=== PATIENT | female | born 1955 | race African-American/Black ===

== ENCOUNTER 2017-05-14 06:56 | Inpatient (IN) | payer OTHER ==
[~2017-05-14] VITALS: Ht 165.1 cm; Wt 49.5 kg
[2017-05-14] MEDS ORDERED: HYDR-906 PO (07:50)
[2017-05-14] MEDS ORDERED: LOVA20TA PO (07:50)
[2017-05-14] MEDS ORDERED: OMEP20CA16 PO (07:50)
[2017-05-14] MEDS ORDERED: IBUP800T25 PO (07:51)
[2017-05-14] MEDS ORDERED: CALC600T24 PO (07:52)
[2017-05-14] MEDS ORDERED: LATA2.5D2 BOTH EYES (07:52)
[2017-05-14 08:27] VITALS: Ht 165.1 cm; Wt 49.5 kg
[2017-05-14 08:30] VITALS: BP 132/80; PULSE 63; RESP 19
[2017-05-14] MEDS ORDERED: CEFAZOLIN 1 GM/50 ML (PMX) 50 ML IVPB ONE (09:00)
[2017-05-14 09:11] LABS: BASOPHILS % 0.8 % (0.0-2.0); EOSINOPHILS # 0.1 10^3/ul (0.0-0.5); EOSINOPHILS % 1.3 % (0.0-7.0); HEMATOCRIT 36.9 % (37.0-47.0); LYMPHOCYTES # 1.4 10^3/ul (0.8-2.9); LYMPHOCYTES % 35.2 % (15.0-51.0); MEAN CORPUSCULAR HEMOGLOBIN 29.2 pg (29.0-33.0); MEAN CORPUSCULAR HGB CONC 32.5 g/dl (32.0-37.0); MEAN CORPUSCULAR VOLUME 89.8 fl (82.0-101.0); MEAN PLATELET VOLUME 12.3 fl (7.4-10.4); MONOCYTE # 0.3 10^3/ul (0.3-0.9); MONOCYTES % 8.4 % (0.0-11.0); NEUTROPHIL # 2.1 10^3/ul (1.6-7.5); PLATELET COUNT 210 10^3/UL (140-415); RED BLOOD COUNT 4.11 10^6/ul (4.20-5.40); RED CELL DISTRIBUTION WIDTH 12.9 % (11.5-14.5)
[2017-05-14 09:14] LABS: PROTIME 13.2 Sec (12.2-14.2)
[2017-05-14 09:20] LABS: CREATININE 0.61 mg/dl (0.44-1.00); POTASSIUM 3.7 mmol/L (3.5-5.1)
[2017-05-14 09:27] LABS: WHITE BLOOD COUNT 3.9 10^3/ul (4.8-10.8)
[2017-05-14 09:44] LABS: PARTIAL THROMBOPLASTIN TIME 36.6 Sec (25.0-35.0)
[2017-05-14 09:59] LABS: ADD UMIC NO; UR ASCORBIC ACID NEGATIVE (NEGATIVE); UR BILIRUBIN (Dip) NEGATIVE (NEGATIVE); UR BLOOD (Dip) NEGATIVE (NEGATIVE); UR CLARITY CLEAR (CLEAR); UR COLOR YELLOW (YELLOW); UR GLUCOSE (Dip) NEGATIVE (NEGATIVE); UR KETONES (Dip) NEGATIVE (NEGATIVE); UR LEUKOCYTE ESTERASE (Dip) NEGATIVE Leu/ul (NEGATIVE); UR NITRITE (Dip) NEGATIVE (NEGATIVE); UR SPECIFIC GRAVITY (Dip) 1.013 (1.003-1.030); UR TOTAL PROTEIN (Dip) NEGATIVE (NEGATIVE); UR UROBILINOGEN (Dip) NEGATIVE (NEGATIVE)
--- NOTE | 2017-05-14 10:52 | HPN ---
Date/Time of Note Date/Time of Note DATE: 05/14/17 TIME: 10:52 Interval H&P Admission Note Pt. seen H&P reviewed: No system changes ROSENDO HAUSER MD May 14, 2017 10:52
== END 2017-05-14 12:01 | disposition home or self-care (01) | DRG 554 ==
LOC: REC 06:56
PROVIDERS: ADMIT Specialist; ATTEND Specialist
DX: M15.0 Primary generalized (osteo)arthritis (principal); M17.10 Unilateral primary osteoarthritis, unspecified knee; Z53.9 Procedure and treatment not carried out, unspecified reason
CPT/HCPCS: 80048; 81003; 85025; 85610; 85730

== ENCOUNTER 2017-05-31 11:16 | Inpatient (IN) | payer OTHER ==
[2017-05-31] VITALS (19 sets, daily range): BP systolic 91–136; BP diastolic 54–80; PULSE 52–80; RESP 15–22; Ht 165.1 cm; Wt 48.0 kg
[~2017-05-31] VITALS: Ht 165.1 cm; Wt 48.0 kg
[~2017-05-31 11:16] MED LIST: CALC600T24 PO; HYDR-906 PO; IBUP800T25 PO; LATA2.5D2 BOTH EYES; LOVA20TA PO; OMEP20CA16 PO
[2017-05-31] MEDS ORDERED: CEFAZOLIN 1 GM/50 ML (PMX) 50 ML IVPB ONE (12:00)
[2017-05-31] MEDS ORDERED: POLYMYXIN/BACITRACIN 1L IRRIG ONE (12:11)
[2017-05-31] MEDS ORDERED: BACITRACIN/POLYMYXIN 28.35 GM OINT TOP ONE (12:11)
[2017-05-31] MEDS ORDERED: CEFAZOLIN 1 GM INJ ONE (12:31)
[2017-05-31] MEDS ORDERED: morphine SULFATE/PF (10 MG/10 ML) INJ ONE (12:31)
[2017-05-31] MEDS ORDERED: PROPOFOL 100 ML ONE (12:31)
[2017-05-31] MEDS ORDERED: ROPIVACAINE 0.5 % 30 ML VIAL ONE (12:32)
[2017-05-31] MEDS ORDERED: MIDAZOLAM 1 MG/ML 2 ML INJ ONE ×2 (12:32)
--- NOTE | 2017-05-31 12:47 | HPN ---
Date/Time of Note Date/Time of Note DATE: 05/31/17 TIME: 12:47 Interval H&P Admission Note Pt. seen H&P reviewed: No system changes ROSENDO HAUSER MD May 31, 2017 12:47
--- NOTE | 2017-05-31 12:55 | OPR ---
Date/Time of Note Date/Time of Note DATE: 05/31/17 TIME: 12:51 Operative Report Preoperative Diagnosis left knee arthritis Postoperative Diagnosis same Surgeon see signature line Benefits Counselor nurse Anesthesia Type: general Estimated Blood Loss: 200 - 250 ml's Transfusion none Specimen bone Grafts/Implants total knee Complications none Procedure Description left total knee replacement ROSENDO HAUSER MD May 31, 2017 12:55
[2017-05-31] MEDS ORDERED: TRANEXAMIC ACID 1,000 MG in SOD CHLORIDE 0.9% 100 ML IV ONE ×6 (13:00)
[2017-05-31] MEDS ORDERED: morphine 4 MG/ML VIAL IV PRN (13:30)
[2017-05-31] MEDS ORDERED: HYDROmorphONE 0.5 MG/0.5 ML SYG IV PRN ×2 (13:30)
[2017-05-31] MEDS ORDERED: ONDANSETRON 4 MG INJ IV PRN (13:30)
[2017-05-31] MEDS ORDERED: ACETAMINOPHEN 500 MG TAB PO PRN (13:30)
[2017-05-31] MEDS ORDERED: morphine 2 MG INJ IV PRN (13:30)
[2017-05-31] MEDS ORDERED: KETOROLAC 15 MG INJ IV PRN (13:30)
[2017-05-31] MEDS ORDERED: DIPHENHYDRAMINE 50 MG INJ IV PRN ×2 (13:30)
[2017-05-31] MEDS ORDERED: ALBUMIN HUMAN 5% 250 ML IV PRN (13:30)
[2017-05-31] MEDS ORDERED: EPHEDrine SULFATE 50 MG/5 ML SYG IV PRN (13:30)
[2017-05-31] MEDS ORDERED: NALOXONE (0.4 MG/ML) INJ IV PRN (13:30)
[2017-05-31] MEDS ORDERED: NALBUPHINE HCL (10 MG/1 ML) INJ IV PRN (13:30)
[2017-05-31] MEDS ORDERED: MEPERIDINE 25 MG INJ IV PRN (13:30)
[2017-05-31] MEDS ORDERED: KETOROLAC 30 MG INJ ONE (15:08)
[2017-05-31] MEDS ORDERED: ONDANSETRON 4 MG INJ ONE (15:08)
[2017-05-31] MEDS ORDERED: METOCLOPRAMIDE 10 MG INJ ONE (15:08)
[2017-05-31] MEDS ORDERED: DEXAMETHASONE 4 MG/ML 1 ML INJ ONE (15:08)
[2017-05-31] MEDS ORDERED: ACETAMINOPHEN 1000MG/100ML IV 100 ML ONE (15:09)
[2017-05-31 16:18] LABS: HEMATOCRIT 34.5 % (37.0-47.0); HEMOGLOBIN 11.4 g/dl (12.0-16.0)
[2017-05-31] MEDS ORDERED: NACL 0.9% 3 ML SYG IV SCH (17:00)
[2017-05-31] MEDS ORDERED: MAGNESIUM HYDROXIDE 30ML CUP PO PRN (17:00)
[2017-05-31] MEDS ORDERED: ACETAMINOPHEN 650 MG SUPP PR PRN (17:00)
[2017-05-31] MEDS ORDERED: IBUPROFEN 600 MG TAB PO PRN (17:00)
[2017-05-31] MEDS ORDERED: BISACODYL (EC) 5 MG TAB PO PRN (17:00)
[2017-05-31] MEDS ORDERED: ACETAMINOPHEN 325 MG TAB PO PRN (17:00)
[2017-05-31 17:02] LABS: CALCIUM 8.9 mg/dl (8.4-10.2); CREATININE 0.66 mg/dl (0.44-1.00); POTASSIUM 3.6 mmol/L (3.5-5.1)
--- NOTE | 2017-05-31 17:18 | QN ---
Documentation Comment [id number] CATHRYN DAWSON MD May 31, 2017 17:17
[2017-05-31] MEDS: SOD CHLORIDE 0.9% 1,000 ML IV SCH (18:20)
--- NOTE | 2017-05-31 19:42 | HP ---
DATE OF ADMISSION: 05/31/2017 HISTORY OF PRESENT ILLNESS: The patient is a 61-year-old female with history of osteoarthritis. Underwent a left total knee replacement. The patient is being seen post-procedure. She is awake, alert, denies any pain. Blood pressure 109/66 and patient is being admitted for further management. PAST MEDICAL HISTORY: Osteoarthritis, DJD. No diabetes, hypertension. ALLERGY HISTORY: NEGATIVE. FAMILY HISTORY: Negative. SOCIAL HISTORY: Negative. MEDICATIONS AT HOME: Listed as: 1. Calcium carbonate. 2. Ibuprofen. 3._ eye drops. 4. Lovastatin. REVIEW OF SYSTEMS: HEENT: Unremarkable. RESPIRATORY: Unremarkable. CARDIOVASCULAR: Unremarkable. ABDOMEN: Unremarkable. EXTREMITIES: Denies any pain at this point. CENTRAL NERVOUS SYSTEM: Unremarkable. PHYSICAL EXAMINATION: GENERAL: The patient is awake, alert. VITAL SIGNS: Pulse 53, blood pressure 109/66. HEAD: Atraumatic, normocephalic. Pupils equal, reactive to light. NECK: Supple. No JVD. LUNGS: Clear. CARDIOVASCULAR: S1, S2 normal. ABDOMEN: Soft, nontender. Bowel sounds positive. EXTREMITIES: No cyanosis, clubbing, or edema. The patient has left knee dressing noted. CENTRAL NERVOUS SYSTEM: The patient is awake, alert, moving both lower extremities toes. IMPRESSION: 1. Status post left total knee replacement. 2. Osteoarthritis. 3. Degenerative joint disease. 4. Anemia. PLAN: Continue home medications when they are available. Continue IV fluid, pain medications. Follow recommendation from Dr. Bonilla. Dictated By: CATHRYN DAWSON MD BS/KAREL Conf#: [id number] DID#: [id number] [facility]
[2017-05-31] MEDS: LATANOPROST 0.005% 2.5 ML OPH BOTH EYES SCH (21:00)
[2017-05-31] MEDS: CEFAZOLIN 1 GM/50 ML (PMX) 50 ML IVPB SCH (21:59)
[2017-05-31] MEDS: ONDANSETRON 4 MG INJ IV PRN (21:59)
[2017-05-31] MEDS ORDERED: CEFAZOLIN 1 GM/50 ML (PMX) 50 ML IVPB SCH (22:00)
[2017-05-31] MEDS: ZOLPIDEM 5 MG TAB PO PRN (23:14)
[2017-06-01 00:16] VITALS: BP 106/66; RESP 18
[2017-06-01] MEDS: morphine 2 MG INJ IV PRN ×2 (03:58→14:25)
[2017-06-01] MEDS: ONDANSETRON 4 MG INJ IV PRN (03:58)
[2017-06-01] MEDS: CEFAZOLIN 1 GM/50 ML (PMX) 50 ML IVPB SCH (05:19)
[2017-06-01] MEDS: HYDROCODONE/APAP (5/325) TAB PO PRN ×3 (05:19→17:22)
[2017-06-01 05:55] VITALS: BP 109/68; PULSE 78; RESP 18
[2017-06-01] MEDS ORDERED: PANTOPRAZOLE 40 MG INJ IV SCH (06:00)
[2017-06-01 06:23] LABS: ABNORMAL IP MESSAGE 1; BASOPHILS % 0.1 % (0.0-2.0); HEMATOCRIT 34.6 % (37.0-47.0); HEMOGLOBIN 11.3 g/dl (12.0-16.0); LYMPHOCYTES # 0.8 10^3/ul (0.8-2.9); LYMPHOCYTES % 7.2 % (15.0-51.0); MEAN CORPUSCULAR HEMOGLOBIN 28.9 pg (29.0-33.0); MEAN CORPUSCULAR HGB CONC 32.7 g/dl (32.0-37.0); MEAN CORPUSCULAR VOLUME 88.5 fl (82.0-101.0); MEAN PLATELET VOLUME 13.3 fl (7.4-10.4); MONOCYTE # 0.7 10^3/ul (0.3-0.9); NEUTROPHIL # 10.1 10^3/ul (1.6-7.5); NEUTROPHILS % 86.4 % (39.0-77.0); RED BLOOD COUNT 3.91 10^6/ul (4.20-5.40); RED CELL DISTRIBUTION WIDTH 12.9 % (11.5-14.5); WHITE BLOOD COUNT 11.7 10^3/ul (4.8-10.8)
[2017-06-01 06:48] LABS: POSITIVE DIFF @See below
[2017-06-01 07:55] LABS: ANISOCYTOSIS 1+ (0-0); GIANT THROMBO% (M) 1 % (0-0); MONOCYTES % (M) 12 % (0-11); PLATELET ESTIMATE NORMAL; POIKILOCYTOSIS 2+ (0-0); POLYCHROMASIA 3+ (0-0)
[2017-06-01 08:17] VITALS: BP 101/68; RESP 18
[2017-06-01] MEDS: SOD CHLORIDE 0.9% 1,000 ML IV SCH (09:20)
[2017-06-01 10:10] LABS: CALCIUM 9.2 mg/dl (8.4-10.2); CREATININE 0.6 mg/dl (0.44-1.00); POTASSIUM 3.5 mmol/L (3.5-5.1)
[2017-06-01 13:18] LABS: PLATELET COUNT 159 10^3/UL (140-415)
--- NOTE | 2017-06-01 13:23 | PN ---
Date/Time of Note Date/Time of Note DATE: 06/01/17 TIME: 13:23 Assessment/Plan VTE Prophylaxis VTE Prophylaxis Intervention: SCD's Lines/Catheters IV Catheter Type (from Nrs): Peripheral IV Urinary Cath still in place: No Reason Cath still needed: urinary retention Assessment/Plan Chief Complaint/Hosp Course 1. Status post left total knee replacement. 2. Osteoarthritis. 3. Degenerative joint disease. 4. Anemia. Problems: Assessment/Plan 1. continue a/b 2. continue medical treatment 3. Insomnia prn 4. dickerson been removed Subjective 24 Hr Interval Summary Free Text/Dictation insomnia Respiratory: no complaints Cardiovascular: no complaints Musculoskeletal: back pain, swelling (left knee) Exam/Review of Systems Vital Signs Vitals Vital Signs Date Time Temp Pulse Resp B/P Pulse Ox O2 Delivery O2 Flow Rate FiO2 06/01/17 08:17 97.8 71 18 101/68 92 06/01/17 05:55 Room Air Intake and Output 05/31/17 05/31/17 06/01/17 14:59 22:59 06:59 Intake Total 1250 ml 1300 ml Output Total 602 ml 1105 ml Balance 648 ml 195 ml Exam Constitutional: alert, oriented Gastrointestinal: soft Musculoskeletal: swelling (left knee postop) Results Result Diagram: 06/01/17 0438 06/01/17 0438 Results 24 hrs Laboratory Tests Test 05/31/17 16:13 06/01/17 04:38 Hemoglobin 11.4 L 11.3 L Hematocrit 34.5 L 34.6 L Sodium Level 144 140 Potassium Level 3.6 3.5 Chloride Level 108 102 Carbon Dioxide Level 27 26 Anion Gap 13 16 Blood Urea Nitrogen 10 10 Creatinine 0.66 0.60 Glucose Level 92 107 Calcium Level 8.9 9.2 White Blood Count 11.7 #H Red Blood Count 3.91 L Mean Corpuscular Volume 88.5 Mean Corpuscular Hemoglobin 28.9 L Mean Corpuscular Hemoglobin Concent 32.7 Red Cell Distribution Width 12.9 Platelet Count 159 # Mean Platelet Volume 13.3 H Neutrophils % 86.4 H Segmented Neutrophils % (Manual) 71 Band Neutrophils % (Manual) 8 H Lymphocytes % 7.2 L Lymphocytes % (Manual) 10 L Monocytes % 6.0 Monocytes % (Manual) 12 H Eosinophils % 0.0 Basophils % 0.1 Nucleated Red Blood Cells % 0.0 Neutrophils # 10.1 H Neutrophils # (Manual) 8.4 H Band Neutrophils # 0.9 H Absolute Lymphocytes (Manual) 1.1 Lymphocytes # 0.8 Monocytes # 0.7 Absolute Monocytes (Manual) 1.4 H Eosinophils # 0.0 Basophils # 0.0 Nucleated Red Blood Cells # 0.0 Platelet Estimate NORMAL Giant Platelets 1 H Platelet Morphology Comment @See below Polychromasia 3+ Poikilocytosis 2+ Anisocytosis 1+ Medications Medications Current Medications Sodium Chloride (NS) 1,000 ml @ 60 mls/hr [id number] IV Last administered on 18:20; Admin Dose 60 MLS/HR; Start 05/31/17 at 16:40 Ondansetron HCl (Zofran Inj) 4 mg Q6H PRN IV NAUSEA AND/OR VOMITING Last administered on 06/01/17 03:58; Admin Dose 4 MG; Start 05/31/17 at 17:00 Acetaminophen (Tylenol Tab) 650 mg Q6H PRN PO PAIN LEVEL 1-3 OR FEVER; Start 05/31/17 at 17:00 Acetaminophen (Tylenol Supp) 650 mg Q6H PRN [place] PAIN LEVEL 1-3 OR FEVER; Start 05/31/17 at 17:00 Ibuprofen (Motrin) 600 mg Q6H PRN PO PAIN LEVEL 1-3; Start 05/31/17 at 17:00 Acetaminophen/ Hydrocodone Bitart ([place] (5/325)) 1 tab Q6H PRN PO MODERATE PAIN LEVEL 4-6 Last administered on 06/01/17 11:05; Admin Dose 1 TAB; Start 05/31/17 at 17:00 Docusate Sodium (Colace) 100 mg Q12H PRN PO CONSTIPATION; Start 05/31/17 at 17 :00 Magnesium Hydroxide (Milk Of Mag) 30 ml DAILY PRN PO CONSTIPATION; Start 05/31 at 17:00 Bisacodyl (Dulcolax) 5 mg DAILY PRN PO CONSTIPATION; Start 05/31/17 at 17:00 Pantoprazole (Protonix Iv) 40 mg DAILY@06 IV Last administered on 06/01/17 05 :19; Admin Dose 40 MG; Start 06/01/17 at 06:00 Latanoprost (Xalatan) 1 drop QHS BOTH EYES ; Start 05/31/17 at 21:00 Zolpidem Tartrate (Ambien) 5 mg HS PRN PO INSOMNIA Last administered on 23:14; Admin Dose 5 MG; Start 05/31/17 at 23:00 Morphine Sulfate (morphine) 2 mg Q4H PRN IV PAIN LEVEL 7-10 Last administered on 06/01/17 03:58; Admin Dose 2 MG; Start 05/31/17 at 23:00 DWIGHT CHUNG Jun 01, 2017 13:23
--- NOTE | 2017-06-01 13:35 | OPR ---
DATE OF OPERATION: SURGEON: Rosendo Bonilla MD ANESTHESIA: General. PREOPERATIVE DIAGNOSIS: Left knee osteoarthritis. POSTOPERATIVE DIAGNOSIS: Left knee osteoarthritis. PROCEDURE PERFORMED: 1. Left total knee replacement arthroplasty using [employer] Nephew posterior stabilized components cemented with a size 5 femur, size 3 tibia, and 23 mm patellar button, 9 mm liner. 2. Removal of hardware from left knee from prior anterior cruciate ligament reconstruction surgery consisting of 2 kate on the tibial side and an Endobutton from the femoral side. ESTIMATED BLOOD LOSS: 200 mL. TOURNIQUET TIME: 80 minutes. COMPLICATIONS: None. PROCEDURE: The patient taken to the operating room and general anesthetic given with a femoral bloc k. Tourniquet applied on the left side. Shepard catheter inserted sterilely. The left leg prepped a nd draped in the usual sterile manner, exsanguinated with an Esmarch bandage tourniquet inflated to 300 mmHg. The patient had prior surgery on the left anterior cruciate ligament reconstruction . She has developed severe and progressive arthritis with deformity, including flexion, varus deformity. Pain has persisted despite rest, medications, therapy, weight loss, steroid and gel inj ections. The patient taken to the operating room. A midline incision made with medial arthrotomy. Severe ar thritis noted in all compartments. The patella prepared for a 23 mm button and femur cut with the i ntramedullary guide to size 5 posterior stabilized component. Tibia cut for a size 3 component and gap measured and full extension and flexion achieved with 9 mm spacer. Wound irrigated with pulsati le lavage. Definitive components brought in and inspected. Cement was mixed and inserted satisfact orily on the dry bony surface. The knee was maintained in full extension while the cement set up. Excess cement was removed meticulously. Tourniquet deflated. Hemostasis obtained using cautery. A medium Hemovac drain placed into the joint. The knee joint was copiously irrigated. Hemostasis as certained. Esmarch tourniquet was deflated. Full extension was achieved with stable flexion, exten mariia and adequate patellar tracking. Arthrotomy closed with #2 FiberWire sutures and #1 Vicryl sutu res. Skin closed with kate. Compression bandage applied. Anesthetic reversed. Patient taken t o recovery in stable condition. Dictated By: ROSENDO ANGUIANO/KAREL Conf#: [id number] DID#: [id number]
[2017-06-01 14:47] VITALS: BP 100/63; RESP 18
[2017-06-01] MEDS: ZOLPIDEM 5 MG TAB PO PRN (17:22)
[2017-06-01 20:00] VITALS: BP 111/67; RESP 18
[2017-06-01] MEDS: LATANOPROST 0.005% 2.5 ML OPH BOTH EYES SCH (20:11)
[2017-06-02] MEDS: morphine 2 MG INJ IV PRN ×4 (00:06→15:24)
[2017-06-02] MEDS: HYDROCODONE/APAP (5/325) TAB PO PRN ×4 (00:38→18:00)
[2017-06-02] MEDS: SOD CHLORIDE 0.9% 1,000 ML IV SCH ×2 (02:00→12:03)
[2017-06-02 02:27] VITALS: BP 138/72; RESP 18
[2017-06-02 05:10] LABS: BASOPHILS % 0.2 % (0.0-2.0); EOSINOPHILS % 0.5 % (0.0-7.0); HEMATOCRIT 33.1 % (37.0-47.0); HEMOGLOBIN 10.5 g/dl (12.0-16.0); LYMPHOCYTES # 1.4 10^3/ul (0.8-2.9); LYMPHOCYTES % 16.5 % (15.0-51.0); MEAN CORPUSCULAR HEMOGLOBIN 28.6 pg (29.0-33.0); MEAN CORPUSCULAR HGB CONC 31.7 g/dl (32.0-37.0); MEAN CORPUSCULAR VOLUME 90.2 fl (82.0-101.0); MEAN PLATELET VOLUME 11.9 fl (7.4-10.4); MONOCYTE # 0.8 10^3/ul (0.3-0.9); MONOCYTES % 9.2 % (0.0-11.0); NEUTROPHIL # 6.1 10^3/ul (1.6-7.5); NEUTROPHILS % 73.4 % (39.0-77.0); PLATELET COUNT 215 10^3/UL (140-415); RED BLOOD COUNT 3.67 10^6/ul (4.20-5.40); RED CELL DISTRIBUTION WIDTH 13.2 % (11.5-14.5); WHITE BLOOD COUNT 8.4 10^3/ul (4.8-10.8)
[2017-06-02 05:45] LABS: CALCIUM 9.3 mg/dl (8.4-10.2); CREATININE 0.6 mg/dl (0.44-1.00)
[2017-06-02] MEDS: ONDANSETRON 4 MG INJ IV PRN ×2 (07:00→12:02)
[2017-06-02 07:25] VITALS: BP 130/72; RESP 20
[2017-06-02] MEDS ORDERED: morphine 4 MG/ML VIAL IV STA (07:32)
[2017-06-02] MEDS: FAMOTIDINE 20 MG INJ IV SCH ×2 (08:20→20:35)
--- NOTE | 2017-06-02 11:10 | PN ---
DWIGHT LE 06/02/17 1110: Date/Time of Note Date/Time of Note DATE: 06/02/17 TIME: 11:08 Assessment/Plan VTE Prophylaxis VTE Prophylaxis Intervention: ambulation, SCD's Lines/Catheters IV Catheter Type (from Nrsg): [place] Urinary Cath still in place: No Assessment/Plan Chief Complaint/Hosp Course 1. Status post left total knee replacement. 2. Osteoarthritis. 3. Degenerative joint disease. 4. Anemia. Problems: Assessment/Plan 1. Pain control 2. Control insomnia Subjective 24 Hr Interval Summary Free Text/Dictation insomnia Musculoskeletal: bone/joint pain Exam/Review of Systems Vital Signs Vitals Vital Signs Date Time Temp Pulse Resp B/P Pulse Ox O2 Delivery O2 Flow Rate FiO2 06/02/17 07:25 97.6 86 20 130/72 96 06/01/17 05:55 Room Air Intake and Output 06/01/17 06/01/17 06/02/17 14:59 22:59 06:59 Intake Total 920 ml 840 ml Output Total 2215 ml 40 ml Balance -1295 ml 800 ml Exam Constitutional: alert, oriented Gastrointestinal: soft Musculoskeletal: swelling (left knee) Results Result Diagram: 06/02/17 0434 06/02/17 0434 Results 24 hrs Laboratory Tests Test 06/02/17 04:34 White Blood Count 8.4 # Red Blood Count 3.67 L Hemoglobin 10.5 L Hematocrit 33.1 L Mean Corpuscular Volume 90.2 Mean Corpuscular Hemoglobin 28.6 L Mean Corpuscular Hemoglobin Concent 31.7 L Red Cell Distribution Width 13.2 Platelet Count 215 # Mean Platelet Volume 11.9 H Neutrophils % 73.4 Lymphocytes % 16.5 Monocytes % 9.2 Eosinophils % 0.5 Basophils % 0.2 Nucleated Red Blood Cells % 0.0 Neutrophils # 6.1 Lymphocytes # 1.4 Monocytes # 0.8 Eosinophils # 0.0 Basophils # 0.0 Nucleated Red Blood Cells # 0.0 Sodium Level 141 Potassium Level 4.0 Chloride Level 103 Carbon Dioxide Level 30 Anion Gap 12 Blood Urea Nitrogen 9 Creatinine 0.60 Glucose Level 90 Calcium Level 9.3 Medications Medications Current Medications Sodium Chloride (NS) 1,000 ml @ 60 mls/hr [id number] IV Last administered on t 18:20; Admin Dose 60 MLS/HR; Start 05/31/17 at 16:40 Ondansetron HCl (Zofran Inj) 4 mg Q6H PRN IV NAUSEA AND/OR VOMITING Last administered on 06/02/17 07:00; Admin Dose 4 MG; Start 05/31/17 at 17:00 Acetaminophen (Tylenol Tab) 650 mg Q6H PRN PO PAIN LEVEL 1-3 OR FEVER; Start 05/31/17 at 17:00 Acetaminophen (Tylenol Supp) 650 mg Q6H PRN [place] PAIN LEVEL 1-3 OR FEVER; Start 05/31/17 at 17:00 Ibuprofen (Motrin) 600 mg Q6H PRN PO PAIN LEVEL 1-3; Start 05/31/17 at 17:00 Acetaminophen/ Hydrocodone Bitart ([place] (5/325)) 1 tab Q6H PRN PO MODERATE PAIN LEVEL 4-6 Last administered on 06/02/17 06:17; Admin Dose 1 TAB; Start 05/31/17 at 17:00 Docusate Sodium (Colace) 100 mg Q12H PRN PO CONSTIPATION; Start 05/31/17 at 17 :00 Magnesium Hydroxide (Milk Of Mag) 30 ml DAILY PRN PO CONSTIPATION; Start 05/31 at 17:00 Bisacodyl (Dulcolax) 5 mg DAILY PRN PO CONSTIPATION; Start 05/31/17 at 17:00 Latanoprost (Xalatan) 1 drop QHS BOTH EYES Last administered on 06/01/17 20: 11; Admin Dose 1 DROP; Start 05/31/17 at 21:00 Zolpidem Tartrate (Ambien) 5 mg HS PRN PO INSOMNIA Last administered on 17:22; Admin Dose 5 MG; Start 05/31/17 at 23:00 Morphine Sulfate (morphine) 2 mg Q4H PRN IV PAIN LEVEL 7-10 Last administered on 06/02/17 04:37; Admin Dose 2 MG; Start 05/31/17 at 23:00 Famotidine (Pepcid Iv) 20 mg Q12 IV Last administered on 06/02/17 08:20; Admin Dose 20 MG; Start 06/02/17 at 09:00 MILENA AGUIALR MD 06/02/17 1548: Assessment/Plan Assessment/Plan Assessment/Plan pain control lovenox snif dc fluids Exam/Review of Systems Results Result Diagram: 06/02/17 0434 06/02/17 0434 DWIGHT CHUNG Jun 02, 2017 11:10 MILENA AGUILAR MD Jun 02, 2017 15:48
[2017-06-02 11:20] VITALS: BP 131/74; PULSE 84; RESP 16
[2017-06-02 15:07] VITALS: BP 121/72; RESP 20
[2017-06-02] MEDS: DOCUSATE SODIUM 100 MG CAP PO PRN (16:07)
[2017-06-02] MEDS: ENOXAPARIN 30 MG/0.3 ML SYG SC SCH (16:10)
[2017-06-02] MEDS ORDERED: morphine 4 MG/ML VIAL IV PRN (19:00)
[2017-06-02 20:29] VITALS: BP 144/82; RESP 16
[2017-06-02] MEDS: ZOLPIDEM 5 MG TAB PO PRN (20:35)
[2017-06-02] MEDS: LATANOPROST 0.005% 2.5 ML OPH BOTH EYES SCH (20:35)
[2017-06-02] MEDS: HYDROmorphONE 0.5 MG/0.5 ML SYG IV PRN (21:29)
[2017-06-03] MEDS: HYDROCODONE/APAP (5/325) TAB PO PRN ×4 (00:18→22:05)
[2017-06-03] MEDS: HYDROmorphONE 0.5 MG/0.5 ML SYG IV PRN ×5 (01:14→13:15)
[2017-06-03 02:23] VITALS: BP 114/67; RESP 16
[2017-06-03 06:13] LABS: BASOPHILS % 0.2 % (0.0-2.0); HEMATOCRIT 31.6 % (37.0-47.0); HEMOGLOBIN 10.4 g/dl (12.0-16.0); LYMPHOCYTES # 1.1 10^3/ul (0.8-2.9); LYMPHOCYTES % 9.4 % (15.0-51.0); MEAN CORPUSCULAR HEMOGLOBIN 28.9 pg (29.0-33.0); MEAN CORPUSCULAR HGB CONC 32.9 g/dl (32.0-37.0); MEAN CORPUSCULAR VOLUME 87.8 fl (82.0-101.0); MEAN PLATELET VOLUME 12.5 fl (7.4-10.4); MONOCYTE # 1.1 10^3/ul (0.3-0.9); MONOCYTES % 10.2 % (0.0-11.0); NEUTROPHILS % 79.8 % (39.0-77.0); PLATELET COUNT 220 10^3/UL (140-415); RED CELL DISTRIBUTION WIDTH 12.7 % (11.5-14.5); WHITE BLOOD COUNT 11.2 10^3/ul (4.8-10.8)
[2017-06-03 06:33] LABS: CREATININE 0.61 mg/dl (0.44-1.00); POTASSIUM 4.2 mmol/L (3.5-5.1)
[2017-06-03 07:50] VITALS: BP 125/78; RESP 18
[2017-06-03] MEDS: FAMOTIDINE 20 MG INJ IV SCH (08:52)
[2017-06-03] MEDS ORDERED: ENOXAPARIN 30 MG/0.3 ML SYG SC SCH (09:00)
[2017-06-03] MEDS: ENOXAPARIN 30 MG/0.3 ML SYG SC SCH (10:02)
--- NOTE | 2017-06-03 10:10 | RADRPT ---
Vent Rate: 70 bpm RR Interval: 0 msec TN Interval: 218 msec QRS Duration: 82 msec QT Interval: 394 msec QTC Interval: 425 msec P-R-T [place]: 66 - 77 - 69 degrees Sinus rhythm with 1st degree AV block Otherwise normal ECG No previous tracing available for comparison Electronically Signed By: Patrick Sarabia [id number]
--- NOTE | 2017-06-03 12:42 | PN ---
Date/Time of Note Date/Time of Note DATE: 06/03/17 TIME: 12:36 Assessment/Plan VTE Prophylaxis VTE Prophylaxis Intervention: LMWH Lines/Catheters IV Catheter Type (from Nrsg): Peripheral IV Urinary Cath still in place: No Assessment/Plan Chief Complaint/Hosp Course 61 y/o with 1. Status post left total knee replacement POD # 3 2. Osteoarthritis. 3. Degenerative joint disease. 4. Anemia. Plan: - PT - Pain control with [place] and Dilaudid - Stool softner - ARU vs SNIF - cw Lovenox Problems: Subjective 24 Hr Interval Summary Free Text/Dictation Pt says pain is better controlled today Walking with PT Exam/Review of Systems Vital Signs Vitals Vital Signs Date Time Temp Pulse Resp B/P Pulse Ox O2 Delivery O2 Flow Rate FiO2 06/03/17 07:50 98.2 71 18 125/78 99 06/02/17 11:20 Room Air Intake and Output 06/02/17 06/02/17 06/03/17 15:00 23:00 07:00 Intake Total 240 ml 200 ml 240 ml Output Total 20 ml 400 ml Balance 220 ml 200 ml -160 ml Exam Constitutional: alert, oriented, very pleasant woman Gastrointestinal: soft Musculoskeletal: swelling (left knee) s/p replacement, able to wiggle toes Results Result Diagram: 06/03/17 0455 06/03/17 0455 Results 24 hrs Laboratory Tests Test 06/03/17 04:55 White Blood Count 11.2 #H Red Blood Count 3.60 L Hemoglobin 10.4 L Hematocrit 31.6 L Mean Corpuscular Volume 87.8 Mean Corpuscular Hemoglobin 28.9 L Mean Corpuscular Hemoglobin Concent 32.9 Red Cell Distribution Width 12.7 Platelet Count 220 Mean Platelet Volume 12.5 H Neutrophils % 79.8 H Lymphocytes % 9.4 L Monocytes % 10.2 Eosinophils % 0.0 Basophils % 0.2 Nucleated Red Blood Cells % 0.0 Neutrophils # 9.0 H Lymphocytes # 1.1 Monocytes # 1.1 H Eosinophils # 0.0 Basophils # 0.0 Nucleated Red Blood Cells # 0.0 Sodium Level 137 Potassium Level 4.2 Chloride Level 100 Carbon Dioxide Level 28 Anion Gap 13 Blood Urea Nitrogen 9 Creatinine 0.61 Glucose Level 96 Calcium Level 9.0 Medications Medications Current Medications Ondansetron HCl (Zofran Inj) 4 mg Q6H PRN IV NAUSEA AND/OR VOMITING Last administered on 06/02/17 12:02; Admin Dose 4 MG; Start 05/31/17 at 17:00 Acetaminophen (Tylenol Tab) 650 mg Q6H PRN PO PAIN LEVEL 1-3 OR FEVER; Start 05/31/17 at 17:00 Acetaminophen (Tylenol Supp) 650 mg Q6H PRN [place] PAIN LEVEL 1-3 OR FEVER; Start 05/31/17 at 17:00 Ibuprofen (Motrin) 600 mg Q6H PRN PO PAIN LEVEL 1-3; Start 05/31/17 at 17:00 Acetaminophen/ Hydrocodone Bitart ([place] (5/325)) 1 tab Q6H PRN PO MODERATE PAIN LEVEL 4-6 Last administered on 06/03/17 11:31; Admin Dose 1 TAB; Start 05/31/17 at 17:00 Docusate Sodium (Colace) 100 mg Q12H PRN PO CONSTIPATION Last administered on 06/02/17 16:07; Admin Dose 100 MG; Start 05/31/17 at 17:00 Magnesium Hydroxide (Milk Of Mag) 30 ml DAILY PRN PO CONSTIPATION; Start 05/31 at 17:00 Bisacodyl (Dulcolax) 5 mg DAILY PRN PO CONSTIPATION; Start 05/31/17 at 17:00 Latanoprost (Xalatan) 1 drop QHS BOTH EYES Last administered on 06/02/17 20: 35; Admin Dose 1 DROP; Start 05/31/17 at 21:00 Zolpidem Tartrate (Ambien) 5 mg HS PRN PO INSOMNIA Last administered on 20:35; Admin Dose 5 MG; Start 05/31/17 at 23:00 Famotidine (Pepcid Iv) 20 mg Q12 IV Last administered on 06/03/17 08:52; Admin Dose 20 MG; Start 06/02/17 at 09:00 Enoxaparin Sodium (Lovenox) 30 mg DAILY SC Last administered on 06/03/17 10: 02; Admin Dose 30 MG; Start 06/02/17 at 16:00 Hydromorphone HCl (Dilaudid) 0.5 mg Q3H PRN IV PAIN Last administered on 10:16; Admin Dose 0.5 MG; Start 06/02/17 at 21:30 MILENA AGUILAR MD Jun 03, 2017 12:42
[2017-06-03] MEDS: HYDROmorphONE 2 MG TAB PO PRN ×2 (13:44→17:24)
[2017-06-03 15:00] VITALS: BP 121/69; RESP 19
[2017-06-03] MEDS: ZOLPIDEM 5 MG TAB PO PRN (17:24)
[2017-06-03 19:20] VITALS: BP 115/84; RESP 20
[2017-06-03] MEDS: FAMOTIDINE 20 MG TAB PO SCH (21:02)
[2017-06-03] MEDS: LATANOPROST 0.005% 2.5 ML OPH BOTH EYES SCH (21:02)
[2017-06-04 01:18] VITALS: BP 141/87; RESP 20
[2017-06-04] MEDS: HYDROCODONE/APAP (5/325) TAB PO PRN ×2 (04:32→13:26)
[2017-06-04 05:16] LABS: BASOPHILS % 0.3 % (0.0-2.0); EOSINOPHILS % 0.2 % (0.0-7.0); HEMATOCRIT 30.3 % (37.0-47.0); HEMOGLOBIN 10.1 g/dl (12.0-16.0); LYMPHOCYTES # 1.2 10^3/ul (0.8-2.9); LYMPHOCYTES % 11.8 % (15.0-51.0); MEAN CORPUSCULAR HEMOGLOBIN 28.9 pg (29.0-33.0); MEAN CORPUSCULAR HGB CONC 33.3 g/dl (32.0-37.0); MEAN CORPUSCULAR VOLUME 86.6 fl (82.0-101.0); MEAN PLATELET VOLUME 11.9 fl (7.4-10.4); MONOCYTE # 1.1 10^3/ul (0.3-0.9); MONOCYTES % 11.1 % (0.0-11.0); NEUTROPHIL # 7.6 10^3/ul (1.6-7.5); NEUTROPHILS % 76.3 % (39.0-77.0); PLATELET COUNT 234 10^3/UL (140-415); RED CELL DISTRIBUTION WIDTH 12.6 % (11.5-14.5); WHITE BLOOD COUNT 9.9 10^3/ul (4.8-10.8)
[2017-06-04] MEDS: DOCUSATE SODIUM 100 MG CAP PO PRN (05:21)
[2017-06-04 05:37] LABS: CALCIUM 9.3 mg/dl (8.4-10.2); CREATININE 0.61 mg/dl (0.44-1.00); POTASSIUM 3.6 mmol/L (3.5-5.1)
[2017-06-04 08:56] VITALS: BP 116/69; RESP 20
[2017-06-04] MEDS: HYDROmorphONE 2 MG TAB PO PRN ×3 (10:30→19:04)
[2017-06-04] MEDS: FAMOTIDINE 20 MG TAB PO SCH (10:30)
[2017-06-04] MEDS: ENOXAPARIN 30 MG/0.3 ML SYG SC SCH (10:36)
--- NOTE | 2017-06-04 14:51 | PN ---
Date/Time of Note Date/Time of Note DATE: 06/04/17 TIME: 14:51 Assessment/Plan VTE Prophylaxis VTE Prophylaxis Intervention: other Lines/Catheters IV Catheter Type (from Nrsg): Peripheral IV Urinary Cath still in place: No Assessment/Plan Chief Complaint/Hosp Course 61 y/o with 1. Status post left total knee replacement POD # 3 2. Osteoarthritis. 3. Degenerative joint disease. 4. Anemia. Plan: - PT - Pain control with [place] and Dilaudid switched to po - Stool softner with Miralax - ARU vs SNIF - per Ortho, dc lovenox switch to ASA - Possible dc to SNIF Problems: Subjective 24 Hr Interval Summary Free Text/Dictation Still has lot of pain Working with PT Pt lives by herself at home, no help at home Exam/Review of Systems Vital Signs Vitals Vital Signs Date Time Temp Pulse Resp B/P Pulse Ox O2 Delivery O2 Flow Rate FiO2 06/04/17 08:56 98.8 99 20 116/69 99 06/02/17 11:20 Room Air Intake and Output 06/03/17 06/03/17 06/04/17 15:00 23:00 07:00 Intake Total 700 ml 600 ml Output Total 300 ml 1000 ml Balance 400 ml -400 ml Exam onstitutional: alert, oriented, very pleasant woman Gastrointestinal: soft Musculoskeletal: swelling (left knee) s/p replacement +bleeding, able to wiggle toes Results Result Diagram: 06/04/17 0440 06/04/17 0440 Results 24 hrs Laboratory Tests Test 06/04/17 04:40 White Blood Count 9.9 Red Blood Count 3.50 L Hemoglobin 10.1 L Hematocrit 30.3 L Mean Corpuscular Volume 86.6 Mean Corpuscular Hemoglobin 28.9 L Mean Corpuscular Hemoglobin Concent 33.3 Red Cell Distribution Width 12.6 Platelet Count 234 Mean Platelet Volume 11.9 H Neutrophils % 76.3 Lymphocytes % 11.8 L Monocytes % 11.1 H Eosinophils % 0.2 Basophils % 0.3 Nucleated Red Blood Cells % 0.0 Neutrophils # 7.6 H Lymphocytes # 1.2 Monocytes # 1.1 H Eosinophils # 0.0 Basophils # 0.0 Nucleated Red Blood Cells # 0.0 Sodium Level 136 Potassium Level 3.6 Chloride Level 99 Carbon Dioxide Level 30 Anion Gap 11 Blood Urea Nitrogen 11 Creatinine 0.61 Glucose Level 99 Calcium Level 9.3 Medications Medications Current Medications Ondansetron HCl (Zofran Inj) 4 mg Q6H PRN IV NAUSEA AND/OR VOMITING Last administered on 06/02/17 12:02; Admin Dose 4 MG; Start 05/31/17 at 17:00 Acetaminophen (Tylenol Tab) 650 mg Q6H PRN PO PAIN LEVEL 1-3 OR FEVER; Start 05/31/17 at 17:00 Acetaminophen (Tylenol Supp) 650 mg Q6H PRN [place] PAIN LEVEL 1-3 OR FEVER; Start 05/31/17 at 17:00 Ibuprofen (Motrin) 600 mg Q6H PRN PO PAIN LEVEL 1-3 Last administered on 01:35; Admin Dose 600 MG; Start 05/31/17 at 17:00 Acetaminophen/ Hydrocodone Bitart ([place] (5/325)) 1 tab Q6H PRN PO MODERATE PAIN LEVEL 4-6 Last administered on 06/04/17 13:26; Admin Dose 1 TAB; Start 05/31/17 at 17:00 Docusate Sodium (Colace) 100 mg Q12H PRN PO CONSTIPATION Last administered on 06/04/17 05:21; Admin Dose 100 MG; Start 05/31/17 at 17:00 Magnesium Hydroxide (Milk Of Mag) 30 ml DAILY PRN PO CONSTIPATION; Start 05/31 at 17:00 Bisacodyl (Dulcolax) 5 mg DAILY PRN PO CONSTIPATION; Start 05/31/17 at 17:00 Latanoprost (Xalatan) 1 drop QHS BOTH EYES Last administered on 06/03/17 21: 02; Admin Dose 1 DROP; Start 05/31/17 at 21:00 Zolpidem Tartrate (Ambien) 5 mg HS PRN PO INSOMNIA Last administered on 17:24; Admin Dose 5 MG; Start 05/31/17 at 23:00 Hydromorphone HCl (Dilaudid) 0.5 mg Q3H PRN IV PAIN Last administered on 13:15; Admin Dose 0.5 MG; Start 06/02/17 at 21:30 Hydromorphone HCl (Dilaudid) 2 mg Q4H PRN PO PAIN Last administered on 10:30; Admin Dose 2 MG; Start 06/03/17 at 14:00 Famotidine (Pepcid) 20 mg BID PO Last administered on 06/04/17 10:30; Admin Dose 20 MG; Start 06/03/17 at 21:00 Aspirin (Aspirin) 81 mg DAILY PO ; Start 06/05/17 at 09:00 MILENA AGUILAR MD Jun 04, 2017 14:51
[2017-06-04] MEDS ORDERED: POLYETHYLENE GLYCOL 17 GM PACKET PO ONE (15:00)
[2017-06-04 16:00] VITALS: BP 116/70; RESP 20
--- NOTE | 2017-06-04 18:07 | PDOCDIS ---
Discharge Instructions DIAGNOSIS Discharge Diagnosis LEFT KNEE REPLACEMENT CONDITION Patient Condition: Fair HOME CARE INSTRUCTIONS: Diet Instructions: Regular ACTIVITY: Activity Restrictions: Avoid Heavy Housework No Weight Bearing FOLLOW UP/APPOINTMENTS Follow-up Plan f/u Dr Bonilla in 1 week f/u PCP in 2 weeks MILENA AGUILAR MD Jun 04, 2017 18:07
[2017-06-04] MEDS ORDERED: ASPI81TA3 PO (18:08)
[2017-06-04] MEDS ORDERED: HYDR2TAB36 PO (18:08)
--- NOTE | 2017-06-04 18:53 | DS ---
DATE OF ADMISSION: 05/31/2017 DATE OF DISCHARGE: 06/04/2017 HISTORY OF PRESENTING ILLNESS AND HOSPITAL COURSE: A 61-year-old woman with past medical history of left knee osteoarthritis. The patient was seen by Dr. Bonilla and admitted for left total knee r eplacement. On admission, vital signs were stable. Labs showed BMP within normal limit. White cou nt was 11.7, hemoglobin 11.3. Postop, patient was feeling better. The patient was requiring pain m edications around the clock, included Dilaudid. The patient was noted to have some post-procedure s ome bleeding from the site and per Dr. Bonilla; however H and H stayed stable and only went from [address] 1.[address] Bonilla the patient can be on aspirin for prophylaxis. The patient was seen by physical therapy and who recommended ambulated with a front-wheel walker 200 feet; however, the patient did not have any help in the home and was requiring lot of assistance, and the patient will be sent to rehab to [facility] and Dr. Israel to follow. FINAL DISCHARGE DIAGNOSES 1. Status post left knee total replacement. 2. Osteoarthritis. 3. Degenerative joint disease. 4. Anemia postop. 5. History of glaucoma. 6. Hypercholesterolemia. DISCHARGE INSTRUCTIONS: The patient will be going to [facility] for PT. DISCHARGE MEDICATIONS 1. Aspirin 81. 2. Hydromorphone 2 mg p.o. q.4 h. p.r.n. pain. 3. Calcium carbonate 600 b.i.d. 4. Latanoprost drops. 5. Lovastatin 20 mg p.o. at bedtime. The patient will be followed by Dr. Bonilla about 1 to 2 we eks and also will be followed by PCP in 2 to 3 weeks. Dictated By: MILENA GALEAS/KAREL Conf#: [id number] DID#: [id number] CC: ROSENDO BONILLA MD;*EndCC*
[2017-06-04] MEDS: LATANOPROST 0.005% 2.5 ML OPH BOTH EYES SCH (20:03)
[2017-06-04 20:55] VITALS: BP 105/63; RESP 20
[2017-06-05] MEDS ORDERED: ASPIRIN 81 MG TAB PO SCH (09:00)
== END 2017-06-04 21:00 | DRG 470 ==
LOC: SDS 11:16 → SUR 11:16 → SDS 12:41 → MS1 16:01 → SUR 16:01
PROVIDERS: ADMIT Specialist; ATTEND Specialist
PROC: 0SPD04Z Removal of Internal Fixation Device from Left Knee Joint, Open Approach (ICD-10-PCS; 2017-05-31)
PROC: 0SRD0J9 Replacement of Left Knee Joint with Synthetic Substitute, Cemented, Open Approach (ICD-10-PCS; principal; 2017-05-31 12:30)
DX: M17.12 Unilateral primary osteoarthritis, left knee (principal); D64.9 Anemia, unspecified; M96.830 Postprocedural hemorrhage of a musculoskeletal structure following a musculoskeletal system procedure; E78.00 Pure hypercholesterolemia, unspecified; H40.9 Unspecified glaucoma; Y83.8 Other surgical procedures as the cause of abnormal reaction of the patient, or of later complication, without mention of misadventure at the time of the procedure; Y92.238 Other place in hospital as the place of occurrence of the external cause; Z98.890 Other specified postprocedural states
CPT/HCPCS: 80048; 85014; 85018; 85025; 87086; 88305; 93005; 97110; 97116; 97163; 97530; C9113; J0131; J0690; J1100; J1170; J1650; J1885; J2250; J2270; J2274; J2405; J2765; J2795; J7030

== ENCOUNTER → 2018-09-18 | Outpatient (CLI) | payer OTHER ==
[~2018-09-18] MED LIST changes: +ASPI-831 PO; -HYDR-906 PO; +HYDR2TAB36 PO; -IBUP800T25 PO; +IBUP800T48 PO; -OMEP20CA16 PO
== END | disposition home or self-care (01) ==
LOC: NUC 07:45
PROVIDERS: ATTEND Specialist
DX: E11.8 Type 2 diabetes mellitus with unspecified complications (principal); M17.12 Unilateral primary osteoarthritis, left knee
CPT/HCPCS: 78306; 78315; A9503

== ENCOUNTER 2018-12-23 06:36 | Day surgery (SDC) | payer OTHER ==
[~2018-12-23] VITALS: Ht 154.9 cm; Wt 48.0 kg
[2018-12-23] MEDS ORDERED: IBUPROFEN PRN (07:36)
[2018-12-23] MEDS ORDERED: RANITIDINE (07:36)
[2018-12-23] MEDS ORDERED: LOVASTATIN (07:36)
[2018-12-23] MEDS ORDERED: EYE DROPS (07:36)
[2018-12-23 07:41] VITALS: Ht 154.9 cm; Wt 48.0 kg
[2018-12-23 07:55] VITALS: BP 110/67; PULSE 68; RESP 18
--- NOTE | 2018-12-23 08:25 | PREAC ---
Date/Time of Note Date/Time of Note DATE: 12/23/18 TIME: 08:24 Anesthesia Eval and Record Evaluation Time Pre-Procedure Interview DATE: 12/23/18 TIME: 08:24 Age 63 Sex female NPO: 8 hrs Preoperative diagnosis SCREENING Planned procedure COLONOSCOPY Past Medical History Past Medical History: Includes Cardio: Dyslipidemia Hepatic: Hepatitis (C) GI: GERD Surgery & Anesthesia Issues No known issue Meds Anticoagulation: No Beta Fareed within 24 hr: No Reason Beta Fareed not given: Pt. not on B-Fareed Active Scripts Aspirin (Aspirin) 81 Mg Chew, 81 MG PO DAILY for 30 Days, TAB Prov:MILENA AGUILAR MD 06/04/17 Hydromorphone Hcl* (Dilaudid*) 2 Mg Tablet, 2 MG PO Q4H PRN for PAIN for 30 Days, TAB Prov:MILENA AGUILAR MD 06/04/17 Reported Medications [Ibuprofen Prn] No Conflict Check 12/23/18 [Ranitidine] No Conflict Check 12/23/18 [Lovastatin] No Conflict Check 12/23/18 [Eye Drops] No Conflict Check 12/23/18 Latanoprost (Latanoprost) 2.5 Ml Drops, 1 DROP BOTH EYES QHS, #1 BOTTLE 05/14/17 Calcium Carbonate* (Calcium Carbonate*) 600 MG Ca Tab, 600 MG PO BID, TAB 05/14/17 Ibuprofen* (Motrin*) 800 Mg Tab, 800 MG PO Q6H PRN for PAIN, TAB 05/14/17 Lovastatin* (Lovastatin*) 20 Mg Tablet, 20 MG PO HS, TAB 05/14/17 Meds reviewed: Yes Allergies Coded Allergies: No Known Allergy (Unverified , 05/14/17) Allergies Reviewed: Yes Labs/Studies Labs Reviewed: Reviewed by anesthesiologist test: N/A Pre-procedure Exam Last vitals Vital Signs Date Temp Pulse Resp B/P (MAP) Pulse Ox O2 O2 Flow FiO2 Time Delivery Rate 12/23/18 98.3 68 18 110/67 100 Room Air 07:55 (81) Airway: Adequate mouth opening, Adequate thyromental dist Mallampati: Mallampati I Teeth: Normal Lung: Normal Heart: Normal ASA Physical Status ASA physical status: 2 Emergency: None Planned Anesthetic General/MAC: MAC Planned Pain Management Parenteral pain med Pre-operative Attestations Prior to commencing anesthesia and surgery, the patient was re-evaluated, there was verification of: *The patient's identity *The results of appropriate recent lab work and preoperative vital signs *The above evaluation not changing prior to induction *Anesthetic plan, risk benefits, alternative and complications discussed with patient/family; questions answered; patient/family understands, accepts and wishes to proceed. INNA MEZA Dec 23, 2018 08:25
[2018-12-23] MEDS ORDERED: EPHEDrine 25 MG/5 ML SYG IV PRN (08:30)
[2018-12-23] MEDS ORDERED: ONDANSETRON 4 MG INJ IV PRN (08:30)
[2018-12-23] MEDS ORDERED: FENTAnyl 50 MCG/ML VIAL IV PRN ×2 (08:30)
[2018-12-23] MEDS ORDERED: hydrALAzine 20 MG INJ IV PRN (08:30)
[2018-12-23] MEDS ORDERED: LABETALOL HCL 20MG INJ IV PRN (08:30)
[2018-12-23] MEDS ORDERED: LIDOCAINE 2% (SDV) 5 ML INJ ONE (08:36)
[2018-12-23] MEDS ORDERED: PROPOFOL 60 ML ONE (08:36)
--- NOTE | 2018-12-23 09:25 | PAC ---
Date/Time of Note Date/Time of Note DATE: 12/23/18 TIME: 09:24 Post-Anesthesia Notes Post-Anesthesia Note Last documented vital signs Vital Signs Date Temp Pulse Resp B/P (MAP) Pulse Ox O2 O2 Flow FiO2 Time Delivery Rate 12/23/18 98.3 68 18 110/67 100 Room Air 09:18 (81) Activity: WNL Respiratory function: WNL Cardiovascular function: WNL Mental status: Baseline Pain reasonably controlled: Yes Hydration appropriate: Yes Nausea/Vomiting absent: Yes INNA MEZA Dec 23, 2018 09:25
[2018-12-23 09:28] VITALS: BP 106/67; PULSE 63; RESP 22
== END 2018-12-23 15:40 | disposition home or self-care (01) ==
LOC: GIL 06:36
PROVIDERS: ATTEND Internal Medicine Gastroenterology
DX: Z12.11 Encounter for screening for malignant neoplasm of colon (principal); D12.7 Benign neoplasm of rectosigmoid junction; K57.30 Diverticulosis of large intestine without perforation or abscess without bleeding
CPT/HCPCS: 45380; 88305; Z7610